=== PATIENT | male | born 1995 | race Native Hawaiian/Other Pacific Islander ===

== ENCOUNTER 2018-10-30 11:30 | Emergency (ER) | payer OTHER ==
[~2018-10-30] VITALS: Ht 165.1 cm; Wt 108.9 kg
[2018-10-30 11:30] VITALS: TEMP 97.9
[2018-10-30 16:55] VITALS: BP 118/84
== END 2018-10-30 16:55 | disposition home or self-care (01) ==
LOC: ED 11:30
PROC: 2W3RX1Z Immobilization of Left Lower Leg using Splint (ICD-10-PCS; principal; 2018-10-30)
DX: S82.852A Displaced trimalleolar fracture of left lower leg, initial encounter for closed fracture (principal); W17.89XA Other fall from one level to another, initial encounter
CPT/HCPCS: 96374; 96375; 96376; 99284; J1170; J1885; J2550

== ENCOUNTER 2019-03-03 10:08 | Emergency (ER) | payer OTHER ==
[~2019-03-03] VITALS: Ht 165.1 cm; Wt 117.5 kg
[2019-03-03 10:35] VITALS: BP 143/86; TEMP 97.2
== END 2019-03-03 11:30 | disposition home or self-care (01) ==
LOC: ED 10:08
DX: K08.89 Other specified disorders of teeth and supporting structures (principal)
CPT/HCPCS: 99282